=== PATIENT | female | born 1945 | race Hispanic/Latino ===

== ENCOUNTER 2022-06-02 13:01 | Outpatient (CLI) | payer OTHER, MEDICAID | END 2022-06-02 13:02 | disposition home or self-care (01) | LOC: BICMRI 13:01 | PROVIDERS: ATTEND Psychiatry & Neurology Neurology | DX: G30.9 Alzheimer's disease, unspecified (principal); G93.89 Other specified disorders of brain; G31.9 Degenerative disease of nervous system, unspecified | CPT/HCPCS: 70551 ==